=== PATIENT | male | born 1940 | race Caucasian/White ===

== ENCOUNTER 2024-07-26 10:00 | Inpatient (IN) ==
--- NOTE | 2024-07-26 10:43 | XRay Report ---
XR chest 1V not portable CLINICAL HISTORY: cough, SOB, fever COMPARISON STUDY: None FINDINGS: There is prior CABG. There is moderate cardiomegaly without pulmonary vascular congestion. Inspiration is shallow. There is stranding opacity in the lung bases. No pleural effusion or pneumoth orax. IMPRESSION: Atelectasis versus early pneumonia in the lung bases. ACT 112: Negative or not required by law. Electronically signed by: Curly Pillai M.D. 07/26/2024 10:42 AM
[2024-07-26 11:25] LABS: Adenovirus PCR Not Detected (NotDetected); Bordetella parapertussis PCR Not Detected (NotDetected); Bordetella pertussis PCR Not Detected (NotDetected); Chlamydia pneumoniae PCR Not Detected (NotDetected); Coronavirus 229E PCR Not Detected (NotDetected); Coronavirus CoV-2 (COVID19)PCR Not Detected (NotDetected); Coronavirus HKU1 PCR Not Detected (NotDetected); Coronavirus NL63 PCR DETECTED (NotDetected); Coronavirus OC43PCR Not Detected (NotDetected); Human Metapneumovirus PCR Not Detected (NotDetected); Influenza A PCR Not Detected (NotDetected); Influenza B PCR Not Detected (NotDetected); Mycoplasma pneumoniae PCR Not Detected (NotDetected); Parainfluenza Virus 1 PCR Not Detected (NotDetected); Parainfluenza Virus 2 PCR Not Detected (NotDetected); Parainfluenza Virus 3 PCR Not Detected (NotDetected); Parainfluenza Virus 4 PCR Not Detected (NotDetected); Respiratory Syncytial VirusPCR Not Detected (NotDetected); Rhinovirus/Enterovirus PCR Not Detected (NotDetected)
[2024-07-26] MEDS: cefTRIAXone SODIUM 2,000 MG/50 ML BAG IV STA (12:11)
[2024-07-26] MEDS: ALBUT/IPRATROP 3MG/0.5MG NEB 3 ML VIAL NEB STA (12:11)
--- NOTE | 2024-07-26 12:17 | Emergency Department Note ---
Impression & Plan Pneumonia ED Provider Note NAME: DANIEL MAYES AGE: 84 SEX: Male INFORMANT: Patient ED PROVIDER(S): Iván Hopkins MD CHIEF COMPLAINT: Flulike symptoms PLAN: Disposition: Admitted Outpatient prescription management: none Referral: None MEDICAL DECISION MAKING: Patient presented to Emergency Department with flulike symptoms. Work was initiated. His CBC and chemistry panel were unremarkable. BUN was mildly elevated. BNP was slightly elevated as well. LFTs negative. The patient does have pneumonia on chest x-ray. BioFire testing revealed the presence of coronavirus NL 63. I suspect given the illness of his that he had coronavirus as she did and is now having a secondary pneumonia. Patient's curb 65 score is borderline and given his complaints of last night and desire for admission the [facility] service was consulted. Patient was evaluated in the ER and admitted for further management. Patient was treated with Rocephin and doxycycline in the ER after blood cultures. Care/management discussed with: none Level of care consideration(s): After review of the information above and other included data, I feel the patient requires escalation of care to admission Triage Nursing notes: reviewed and agree them. Vital Signs: reviewed and remarkable for no significant abnormalities Additional History obtained from: none Chronic Medical/Social Conditions affecting care: Hypertension Prior/ Outside/ External records reviewed: none Differential Diagnosis: Reactive airway disease, pneumonia, pneumothorax, COPD, CHF, infections, cardiac ischemia, pulmonary embolism, musculoskeletal, gastrointestinal, as well as other pathologies. Diagnostics, independently interpreted by me: ECG: Twelve-lead ECG reveals a sinus rhythm with a first-degree AV block at 63 bpm. Incomplete right bundle branch block. And septal Q wave present. Cardiac Monitoring: Cardiac monitoring ordered by me: The patient was placed on continuous cardiac monitoring and observed. It revealed a normal sinus rhythm at 75 beats per minute without ectopy or evidence of dysrhythmia. Medical decision rules: none Imaging studies: Chest x-ray is concerning for pneumonia. I refer you to the EMR for further details. HPI: 84 year old Male arrives for evaluation of flulike symptoms. This started about 2 weeks ago and is worsening. Patient states that he had a very rough night last night and was having shortness of breath cough and congestion. The patient also notes the following associated symptoms, fever and body aches. Patient notes his was sick with similar symptoms but only lasted a few days. The patient has been prescribed amoxicillin and Flonase for relieving factors. Current pain is rated as 0/10. Patient is requesting admission. Pt denies LOC, headache, diaphoresis, visual changes, neck pain, chest pain, nausea, vomiting, abdominal pain, back pain, melena, hematochezia, urinary symptoms, numbness, weakness, lymphadenopathy, rash, or other complaints. PAST MEDICAL HISTORY: See Below, hypertension PAST SURGICAL HISTORY: See Below, SOCIAL HISTORY: See Below, retired HOME MEDICATIONS: See Below ALLERGIES: See Below VITALS: See Below PHYSICAL EXAMINATION: GENERAL: Awake, tired appearing, in no distress HENT: Normocephalic, atraumatic. Oropharynx unremarkable. EYES: Normal conjunctiva. Sclera non-icteric. NECK: Inspection normal. Non-tender. Supple. No nuchal rigidity. FROM. No masses. RESPIRATORY: Few scattered rhonchi noted. No wheezes. No rales. Normal respiratory effort. CARDIAC: Normal rate. Normal rhythm. No murmurs. No rubs. Extremities warm and well perfused. Pulses equal. No JVD. GI: Soft, non-distended. No tenderness to palpation. No rebound or guarding. No masses. RECTAL: Deferred. MUSCULOSKELETAL: Atraumatic. Chest examination reveals no tenderness. The back is symmetrical on inspection without obvious abnormality. There is no CVA tenderness to palpation. No joint edema. LOWER EXTREMITIES: Calves are equal size bilaterally and non-tender. No edema. No discoloration. NEURO: Normal sensorium. No sensory or motor deficits noted. SKIN: No rash or jaundice noted. PROCEDURES: none CRITICAL CARE: none OBSERVATION NOTE: none Past Med/Surg History Problem List (Updated 07/26/24 @ 14:30 by ARGENTINA Maurer) ERIN (obstructive sleep apnea) Atrial fibrillation S/P CABG x 3 CAD (coronary artery disease) Pneumonia (Acute) Social History Smoking Status: Never smoker Preferred Language: Swedish Feels Safe at Home: Yes Allergies Allergies Allergy/AdvReac Type Severity Reaction Status Date / Time Unable to Assess Allergy Unverified 07/26/24 14:12 Home Meds Home Medications Medication Instructions Recorded Confirmed amoxicillin 875 mg-potassium 1 tab PO AMPM 07/26/24 07/26/24 clavulanate 125 mg tablet atorvastatin 40 mg tablet 40 mg PO DAILY 07/26/24 07/26/24 fluticasone propionate 50 1 spray intranasal DAILY 07/26/24 07/26/24 mcg/actuation nasal spray,suspension furosemide 20 mg tablet 20 mg PO Q OTHER DAY 07/26/24 07/26/24 metoprolol succinate 25 mg 12.5 mg PO BID 07/26/24 07/26/24 tablet,extended release 24 hr Results & Data (ED) Vital Signs Vital Signs - 24 hr 07/26/24 10:10 07/26/24 12:14 07/26/24 12:22 Temperature 36.8 C Temperature Source Temporal Artery Scan Pulse Rate 66 62 Pulse Rate [Right Brachial] Pulse Rhythm [Right Brachial] Pulse Strength [Right Brachial] Respiratory Rate 18 16 Respiratory Effort / Characteristics Non-Labored Respiratory Depth Normal Respiratory Pattern Blood Pressure 149/70 H 111/61 Blood Pressure [Right Arm] Blood Pressure Mean 96 77 Blood Pressure Mean [Right Arm] Blood Pressure Position [Right Arm] Pulse Oximetry 95 91 96 Oxygen Delivery Method Room Air Room Air Room Air Sepsis Recent Fever Within 48 Hours Yes Sepsis New/Unexplained Change in Mental Status No Sepsis Action Taken by Nursing No Action Required 07/26/24 12:27 07/26/24 14:00 07/26/24 16:00 Temperature Temperature Source Pulse Rate 66 Pulse Rate [Right Brachial] 72 75 Pulse Rhythm [Right Brachial] Regular Regular Pulse Strength [Right Brachial] Normal Normal Respiratory Rate 22 20 Respiratory Effort / Characteristics Non-Labored Non-Labored Respiratory Depth Normal Normal Respiratory Pattern Regular Regular Blood Pressure Blood Pressure [Right Arm] 123/74 121/76 Blood Pressure Mean Blood Pressure Mean [Right Arm] 90 91 Blood Pressure Position [Right Arm] Lying Lying Pulse Oximetry 96 98 Oxygen Delivery Method Room Air Room Air Sepsis Recent Fever Within 48 Hours Sepsis New/Unexplained Change in Mental Status Sepsis Action Taken by Nursing Laboratory Data 07/26/24 12:00 07/26/24 13:18 Lab Results 07/26/24 07/26/24 07/26/24 Range/Units 10:25 12:00 13:18 WBC 8.49 (4.8-10.8) K/ul RBC 4.12 L (4.70-6.10) M/uL Hgb 12.9 L (14.0-18.0) g/dl Hct 38.6 L (42.0-52.0) % MCV 93.7 (80.0-100.0) fL MCH 31.3 (25.0-34.0) pg MCHC 33.4 (32.0-36.0) g/dL RDW Std Deviation 45.1 (36.4-46.3) fL RDW Coeff of Juli 13.1 (11.5-14.5) % Plt Count 292 (130-400) K/uL MPV 9.3 L (9.4-12.4) fL Immature Gran % (Auto) 0.8 % Neut % (Auto) 62.3 % Lymph % (Auto) 18.7 % [place] % (Auto) 15.9 % Eos % (Auto) 1.9 % Baso % (Auto) 0.4 % Neut # (Auto) 5.29 (1.40-6.50) K/uL Lymph # (Auto) 1.59 (1.20-3.40) K/uL [place] # (Auto) 1.35 H (0.11-0.59) K/uL Eos # (Auto) 0.16 (0.00-0.50) K/uL Baso # (Auto) 0.03 (0.00-0.20) K/uL Immature Gran # (Auto) 0.07 (0.01-0.20) K/uL Sodium 137 (136-145) mmol/L Potassium TNP 3.7 Chloride 103 (98-107) mmol/L Carbon Dioxide 26 (21-32) mmol/L Anion Gap 8 (3-11) BUN 20 (6-23) mg/dl Creatinine 0.87 (0.6-1.4) mg/dl Est Cr Clr Drug Dosing 61.8 ml/min eGFR 86.15 BUN/Creatinine Ratio 23.0 H (10-20) Glucose 94 (70-99(Fasting)) mg/dl Calcium 9.3 (8.6-10.3) mg/dl Total Bilirubin 1.1 H (0.2-1.0) mg/dl AST TNP 32 ALT 28 (7-52) U/L Alkaline Phosphatase 75 (34-104) U/L Troponin I High Sens 9.2 (0-20) pg/ml B-Natriuretic Peptide 162 H (0-100) pg/ml Total Protein 7.0 (6.0-8.3) gm/dl Albumin 3.6 (3.4-5.0) gm/dl Globulin 3.4 (2.5-4.0) gm/dl Albumin/Globulin Ratio 1.1 (0.9-2) Lipase 19 (11-82) U/L Procalcitonin (0-0.5) ng/ml Adenovirus (PCR) Not Detected (NotDetected) B. pertussis DNA (PCR) Not Detected (NotDetected) B.parapertussis DNA PCR Not Detected (NotDetected) C. pneumoniae DNA (PCR) Not Detected (NotDetected) Coronavirus OC43 (PCR) Not Detected (NotDetected) Coronavirus HKU1 (PCR) Not Detected (NotDetected) Coronavirus 229E (PCR) Not Detected (NotDetected) SARS-CoV-2 (PCR) Not Detected (NotDetected) Coronavirus NL63 (PCR) DETECTED A (NotDetected) Human Metapneumovir PCR Not Detected (NotDetected) Influenza Type A (PCR) Not Detected (NotDetected) Influenza Type B (PCR) Not Detected (NotDetected) M. pneumoniae (PCR) Not Detected (NotDetected) Parainfluenza 1 (PCR) Not Detected (NotDetected) Parainfluenza 2 (PCR) Not Detected (NotDetected) Parainfluenza 3 (PCR) Not Detected (NotDetected) Parainfluenza 4 (PCR) Not Detected (NotDetected) RSV (PCR) Not Detected (NotDetected) Entero/Rhino (PCR) Not Detected (NotDetected) 07/26/24 Range/Units 14:31 WBC (4.8-10.8) K/ul RBC (4.70-6.10) M/uL Hgb (14.0-18.0) g/dl Hct (42.0-52.0) % MCV (80.0-100.0) fL MCH (25.0-34.0) pg MCHC (32.0-36.0) g/dL RDW Std Deviation (36.4-46.3) fL RDW Coeff of Juli (11.5-14.5) % Plt Count (130-400) K/uL MPV (9.4-12.4) fL Immature Gran % (Auto) % Neut % (Auto) % Lymph % (Auto) % [place] % (Auto) % Eos % (Auto) % Baso % (Auto) % Neut # (Auto) (1.40-6.50) K/uL Lymph # (Auto) (1.20-3.40) K/uL [place] # (Auto) (0.11-0.59) K/uL Eos # (Auto) (0.00-0.50) K/uL Baso # (Auto) (0.00-0.20) K/uL Immature Gran # (Auto) (0.01-0.20) K/uL Sodium (136-145) mmol/L Potassium Chloride (98-107) mmol/L Carbon Dioxide (21-32) mmol/L Anion Gap (3-11) BUN (6-23) mg/dl Creatinine (0.6-1.4) mg/dl Est Cr Clr Drug Dosing ml/min eGFR BUN/Creatinine Ratio (10-20) Glucose (70-99(Fasting)) mg/dl Calcium (8.6-10.3) mg/dl Total Bilirubin (0.2-1.0) mg/dl AST ALT (7-52) U/L Alkaline Phosphatase (34-104) U/L Troponin I High Sens (0-20) pg/ml B-Natriuretic Peptide (0-100) pg/ml Total Protein (6.0-8.3) gm/dl Albumin (3.4-5.0) gm/dl Globulin (2.5-4.0) gm/dl Albumin/Globulin Ratio (0.9-2) Lipase (11-82) U/L Procalcitonin 0.19 (0-0.5) ng/ml Adenovirus (PCR) (NotDetected) B. pertussis DNA (PCR) (NotDetected) B.parapertussis DNA PCR (NotDetected) C. pneumoniae DNA (PCR) (NotDetected) Coronavirus OC43 (PCR) (NotDetected) Coronavirus HKU1 (PCR) (NotDetected) Coronavirus 229E (PCR) (NotDetected) SARS-CoV-2 (PCR) (NotDetected) Coronavirus NL63 (PCR) (NotDetected) Human Metapneumovir PCR (NotDetected) Influenza Type A (PCR) (NotDetected) Influenza Type B (PCR) (NotDetected) M. pneumoniae (PCR) (NotDetected) Parainfluenza 1 (PCR) (NotDetected) Parainfluenza 2 (PCR) (NotDetected) Parainfluenza 3 (PCR) (NotDetected) Parainfluenza 4 (PCR) (NotDetected) RSV (PCR) (NotDetected) Entero/Rhino (PCR) (NotDetected) Administered Medications Discontinued Medications Albuterol (Albut/Ipratrop 3mg/0.5mg Neb 3 Ml Vial) 3 ml NEB NOW STA; Protocol Stop: 07/26/24 11:44 Last Admin: 07/26/24 12:11 Dose: 3 ml Documented By: Ceftriaxone Sodium (Rocephin) 2,000 mg in 50 mls @ 100 mls/hr IV NOW STA Stop: 07/26/24 12:13 Last Infusion: 07/26/24 13:54 Dose: Infused Documented By: Admin: 07/26/24 12:11 Dose: 100 mls/hr Documented By: Doxycycline Hyclate 100 mg/ (Dextrose) 100 mls @ 50 mls/hr IV NOW STA Stop: 07/26/24 15:38 Last Infusion: 07/26/24 16:37 Dose: Infused Documented By: Admin: 07/26/24 14:29 Dose: 50 mls/hr Documented By: LETICIA Imaging Data Radiologist's Impression: Chest X-Ray 07/26/24 10:25 XR chest 1V not portable CLINICAL HISTORY: cough, SOB, fever COMPARISON STUDY: None FINDINGS: There is prior CABG. There is moderate cardiomegaly without pulmonary vascular congestion. Inspiration is shallow. There is stranding opacity in the lung bases. No pleural effusion or pneumothorax. IMPRESSION: Atelectasis versus early pneumonia in the lung bases. ACT 112: Negative or not required by law. Electronically signed by: Curly Pillai M.D. 07/26/2024 10:42 AM Discharge Plan Visit Data Chief Complaint: Flu Like Symptoms Stated Complaint: FEVER, ACHY, WEAK, COUGH ED Provider: Iván Hopkins Discharge Problem: Pneumonia Forms Stand Alone Forms: My [facility] Prescriptions Prescriptions: No Action atorvastatin 40 mg tablet 40 mg PO DAILY furosemide 20 mg tablet 20 mg PO Q OTHER DAY Rx Instructions: Pat take additional if needed for fluid retention metoprolol succinate 25 mg tablet extended release 24 hr 12.5 mg PO BID fluticasone propionate 50 mcg/actuation spray,suspension 1 spray INTRANASAL DAILY amoxicillin-pot clavulanate 875-125 mg tablet 1 tab PO AMPM Rx Instructions: Start Date 07/23/24 x7 day supply Referrals Referrals: Patricia Carr MD [Primary Care Provider] -
[2024-07-26 12:24] LABS: Basophils # (auto) 0.03 K/uL (0.00-0.20); Basophils % (auto) 0.4 %; Eosinophils # (auto) 0.16 K/uL (0.00-0.50); Eosinophils % (auto) 1.9 %; Hematocrit (blood only) 38.6 % (42.0-52.0); Hemoglobin 12.9 g/dl (14.0-18.0); Immature Granulocytes # (auto) 0.07 K/uL (0.01-0.20); Immature Granulocytes % (auto) 0.8 %; Lymphocytes # (auto) 1.59 K/uL (1.20-3.40); Lymphocytes % (auto) 18.7 %; Mean Corpuscular Hemoglobin 31.3 pg (25.0-34.0); Mean Corpuscular Hgb Conc 33.4 g/dL (32.0-36.0); Mean Corpuscular Volume 93.7 fL (80.0-100.0); Mean Platelet Volume 9.3 fL (9.4-12.4); Monocytes # (auto) 1.35 K/uL (0.11-0.59); Monocytes % (auto) 15.9 %; Neutrophils # (auto) 5.29 K/uL (1.40-6.50); Neutrophils % (auto) 62.3 %; Platelet Count 292 K/uL (130-400); RDW Coefficient of Variation 13.1 % (11.5-14.5); RDW Standard Deviation 45.1 fL (36.4-46.3); Red Blood Count 4.12 M/uL (4.70-6.10); White Blood Count 8.49 K/ul (4.8-10.8)
[2024-07-26 12:52] LABS: Alanine Aminotransferase 28 U/L (7-52); Albumin Globulin Ratio 1.1 (0.9-2); Albumin Level 3.6 gm/dl (3.4-5.0); Alkaline Phosphatase 75 U/L (34-104); Anion Gap 8 (3-11); Bilirubin,Total 1.1 mg/dl (0.2-1.0); Blood Urea Nitrogen 20 mg/dl (6-23); Calcium 9.3 mg/dl (8.6-10.3); Carbon Dioxide 26 mmol/L (21-32); Chloride 103 mmol/L (98-107); Creatinine Clr Calc Pharmacy 61.8 ml/min; Globulin 3.4 gm/dl (2.5-4.0); Glucose 94 mg/dl (70-99(Fasting)); Lipase 19 U/L (11-82); Sodium 137 mmol/L (136-145); Troponin I High Sensitivity 9.2 pg/ml (0-20)
[2024-07-26 13:48] LABS: Potassium 3.7 mmol/L (3.5-5.1)
--- NOTE | 2024-07-26 14:15 | Electrocardiogram Report ---
Test Reason : Blood Pressure : */* mmHG Vent. Rate : 63 BPM Atrial Rate : 63 BPM P-R Int : 242 ms QRS Dur : 98 ms QT Int : 422 ms P-R-T Axes : 55 -29 67 degrees QTcB Int : 431 ms Sinus rhythm with 1st degree A-V block Incomplete right bundle branch block Septal infarct , age undetermined Abnormal ECG No previous ECGs available Confirmed by Megan Mclean (Rosio) on 07/26/2024 2:15:00 PM Referred By: REFERRED SELF Confirmed By: Megan Mclean
--- NOTE | 2024-07-26 14:21 | History & Physical Report ---
Date of Service July 26, 2024 Assessment & Plan (1) Pneumonia: (2) CAD (coronary artery disease): (3) S/P CABG x 3: (4) Atrial fibrillation: (5) ERIN (obstructive sleep apnea): Plan The patient is a 84-year-old male with a past medical history of CAD, CABG, AF, ERIN on CPAP who presents to the ED on 07/26/2024 with complaints of ongoing flulike symptoms and generalized weakness over the past 2 weeks found to be coronavirus NL 63 positive Superimposed bacterial pneumonia Coronavirus NL 63 Supportive care, nebs as needed, no hypoxia noted Can continue IV fluids if needed, monitor labs Continue doxycycline/ceftriaxone Hx CAD/HLD/CHF/CABG: Continue metoprolol/Lasix/atorvastatin Follows with [facility] cardiology last seen October 2023 A total of 60 minutes was spent on chart review/facilitating plan of care/re viewing diagnostic data/discussion with consultants Disposition: Plan for monitoring overnight, if stable/improving in the morning, can likely DC on oral antibiotics Full code DVT prophylaxis: hep sub-q History of Present Illness Chief Complaint: Cough, flulike symptoms Primary Care Provider: Patricia Carr MD The patient is an 84-year-old male with a past medical history of CABG times 01 Nov 2023, AF, aortic valve stenosis, ERIN on CPAP, CAD, HTN who presents to the ED on 07/26/2024 with complaints of flulike symptoms over the past 2 weeks. Patient was seen by his PCP on 07/23/2024, he was given Flonase, amoxicillin and his symptoms are not improving. Patient had a negative at-home COVID test. No hypoxia noted. Patient reports his cough had improved initially but then worsened again. He also reported some subjective fevers. He is not sure his highest temp. He denies any nausea/vomiting/diarrhea or abdominal pain. Still reports some ongoing flulike symptoms. Found to be positive for coronavirus NL 63 here Chest x-ray showed bilateral pneumonia Labs on arrival fairly unremarkable, BNP mildly elevated at 162 Patient was given Doxy and ceftriaxone in the ED and will be admitted for further management Allergies Allergy/AdvReac Type Severity Reaction Status Date / Time Unable to Assess Allergy Unverified 07/26/24 14:12 Home Medications Medication Instructions Recorded Confirmed Type amoxicillin 875 mg-potassium 1 tab PO AMPM 07/26/24 07/26/24 History clavulanate 125 mg tablet atorvastatin 40 mg tablet 40 mg PO DAILY 07/26/24 07/26/24 History fluticasone propionate 50 1 spray intranasal DAILY 07/26/24 07/26/24 History mcg/actuation nasal spray,suspension furosemide 20 mg tablet 20 mg PO Q OTHER DAY 07/26/24 07/26/24 History metoprolol succinate 25 mg 12.5 mg PO BID 07/26/24 07/26/24 History tablet,extended release 24 hr Past Med/Surg History Problem List (Updated 07/26/24 @ 14:30 by ARGENTINA Maurer) ERIN (obstructive sleep apnea) Atrial fibrillation S/P CABG x 3 CAD (coronary artery disease) Pneumonia (Acute) Social History Smoking Status: Never smoker Preferred Language: Serbian Feels Safe at Home: Yes Review of Systems Review of Systems: All systems reviewed & are unremarkable except as noted in HPI & below Physical Exam Constitutional: WD/WN, vitals as above well developed Eyes: PERRL, conjunctivae normal, anicteric sclerae ENMT: external ear and nose normal, oropharynx normal Neck: trachea midline, no thyromegaly Respiratory: normal respiratory effort, lungs clear to auscultation (Coarse bilateral lung sounds., Diminished) Cardiovascular: RRR, no murmur, no edema Gastrointestinal (Abdomen): normal bowel sounds, soft, nontender, no hepatosplenomegaly Musculoskeletal: no cyanosis or clubbing, extremities motor strength 5/5 Skin: no rashes, warm and dry Neurologic: PERRL, EOMI, accommodation nl, no face palsy, no dysarthria Psychiatric: A+Ox3, euthymic affect Lymphatic: no cervical or axillary lymphadenopathy Results & Data Results & Data Vital Signs (Past 12 Hours) Vital Signs Temp Pulse Resp BP Pulse Ox O2 Del Method 07/26/24 12:27 66 07/26/24 12:22 96 Room Air 07/26/24 12:14 62 16 111/61 91 Room Air 07/26/24 10:10 36.8 C 66 18 149/70 H 95 Room Air Diagnostic Findings Laboratory Results WBC 8.49 K/ul (4.8-10.8) 07/26/24 12:00 RBC 4.12 M/uL (4.70-6.10) L 07/26/24 12:00 Hgb 12.9 g/dl (14.0-18.0) L 07/26/24 12:00 Hct 38.6 % (42.0-52.0) L 07/26/24 12:00 MCV 93.7 fL (80.0-100.0) 07/26/24 12:00 MCH 31.3 pg (25.0-34.0) 07/26/24 12:00 MCHC 33.4 g/dL (32.0-36.0) 07/26/24 12:00 RDW Std Deviation 45.1 fL (36.4-46.3) 07/26/24 12:00 RDW Coeff of Juli 13.1 % (11.5-14.5) 07/26/24 12:00 Plt Count 292 K/uL (130-400) 07/26/24 12:00 MPV 9.3 fL (9.4-12.4) L 07/26/24 12:00 Immature Gran % (Auto) 0.8 % 07/26/24 12:00 Neut % (Auto) 62.3 % 07/26/24 12:00 Lymph % (Auto) 18.7 % 07/26/24 12:00 [place] % (Auto) 15.9 % 07/26/24 12:00 Eos % (Auto) 1.9 % 07/26/24 12:00 Baso % (Auto) 0.4 % 07/26/24 12:00 Neut # (Auto) 5.29 K/uL (1.40-6.50) 07/26/24 12:00 Lymph # (Auto) 1.59 K/uL (1.20-3.40) 07/26/24 12:00 [place] # (Auto) 1.35 K/uL (0.11-0.59) H 07/26/24 12:00 Eos # (Auto) 0.16 K/uL (0.00-0.50) 07/26/24 12:00 Baso # (Auto) 0.03 K/uL (0.00-0.20) 07/26/24 12:00 Immature Gran # (Auto) 0.07 K/uL (0.01-0.20) 07/26/24 12:00 Sodium 137 mmol/L (136-145) 07/26/24 12:00 Potassium 3.7 mmol/L (3.5-5.1) 07/26/24 13:18 Chloride 103 mmol/L (98-107) 07/26/24 12:00 Carbon Dioxide 26 mmol/L (21-32) 07/26/24 12:00 Anion Gap 8 (3-11) 07/26/24 12:00 BUN 20 mg/dl (6-23) 07/26/24 12:00 Creatinine 0.87 mg/dl (0.6-1.4) 07/26/24 12:00 Est Cr Clr Drug Dosing 61.8 ml/min 07/26/24 12:00 eGFR 86.15 07/26/24 12:00 BUN/Creatinine Ratio 23.0 (10-20) H 07/26/24 12:00 Glucose 94 mg/dl (70-99(Fasting)) 07/26/24 12:00 Calcium 9.3 mg/dl (8.6-10.3) 07/26/24 12:00 Total Bilirubin 1.1 mg/dl (0.2-1.0) H 07/26/24 12:00 AST 32 U/L (13-39) 07/26/24 13:18 ALT 28 U/L (7-52) 07/26/24 12:00 Alkaline Phosphatase 75 U/L (34-104) 07/26/24 12:00 Troponin I High Sens 9.2 pg/ml (0-20) 07/26/24 12:00 B-Natriuretic Peptide 162 pg/ml (0-100) H 07/26/24 12:00 Total Protein 7.0 gm/dl (6.0-8.3) 07/26/24 12:00 Albumin 3.6 gm/dl (3.4-5.0) 07/26/24 12:00 Globulin 3.4 gm/dl (2.5-4.0) 07/26/24 12:00 Albumin/Globulin Ratio 1.1 (0.9-2) 07/26/24 12:00 Lipase 19 U/L (11-82) 07/26/24 12:00 Adenovirus (PCR) Not Detected (NotDetected) 07/26/24 10:25 B. pertussis DNA (PCR) Not Detected (NotDetected) 07/26/24 10:25 B.parapertussis DNA PCR Not Detected (NotDetected) 07/26/24 10:25 C. pneumoniae DNA (PCR) Not Detected (NotDetected) 07/26/24 10:25 Coronavirus OC43 (PCR) Not Detected (NotDetected) 07/26/24 10:25 Coronavirus HKU1 (PCR) Not Detected (NotDetected) 07/26/24 10:25 Coronavirus 229E (PCR) Not Detected (NotDetected) 07/26/24 10:25 SARS-CoV-2 (PCR) Not Detected (NotDetected) 07/26/24 10:25 Coronavirus NL63 (PCR) DETECTED (NotDetected) A 07/26/24 10:25 Human Metapneumovir PCR Not Detected (NotDetected) 07/26/24 10:25 Influenza Type A (PCR) Not Detected (NotDetected) 07/26/24 10:25 Influenza Type B (PCR) Not Detected (NotDetected) 07/26/24 10:25 M. pneumoniae (PCR) Not Detected (NotDetected) 07/26/24 10:25 Parainfluenza 1 (PCR) Not Detected (NotDetected) 07/26/24 10:25 Parainfluenza 2 (PCR) Not Detected (NotDetected) 07/26/24 10:25 Parainfluenza 3 (PCR) Not Detected (NotDetected) 07/26/24 10:25 Parainfluenza 4 (PCR) Not Detected (NotDetected) 07/26/24 10:25 RSV (PCR) Not Detected (NotDetected) 07/26/24 10:25 Entero/Rhino (PCR) Not Detected (NotDetected) 07/26/24 10:25 Impressions Chest X-Ray 07/26/24 10:25 XR chest 1V not portable CLINICAL HISTORY: cough, SOB, fever COMPARISON STUDY: None FINDINGS: There is prior CABG. There is moderate cardiomegaly without pulmonary vascular congestion. Inspiration is shallow. There is stranding opacity in the lung bases. No pleural effusion or pneumothorax. IMPRESSION: Atelectasis versus early pneumonia in the lung bases. ACT 112: Negative or not required by law. Electronically signed by: Curly Pillai M.D. 07/26/2024 10:42 AM Supervising Physician Co-Signing Physician Notes Patient is an 84-year-old male with history of CABG, ERIN, CAD, hypertension and other medical problems presents with history of ongoing flulike symptoms over the past 2 weeks duration. Patient was evaluated by PCP as outpatient and was prescribed amoxicillin and Flonase which did not relieve his symptoms. Patient reports having worsening cough and subjective fever. Please review HPI for complete details of presentation. He is saturating well on room air. I personally reviewed blood work and imaging studies. BioFire positive for coronavirus NL 63. Chest x-ray suggestive of possible pneumonia. EKG showed sinus rhythm with first-degree AV block, incomplete right bundle branch block. Physical Exam: Vitals signs as noted above General Appearance:Moderately built and nourished, no apparent distress Head: normocephalic, Atraumatic Eyes: normal inspection, EOMI Neck: supple, Trachea midline Respiratory/Chest: Decreased breath sounds, scattered crackles, No accessory muscle use Cardiovascular: S1, S2, ? murmur Abdomen/GI:Soft, Non tender, Bowel sounds present Extremities/Musculoskeletal:normal inspection, no edema Neurologic/Psych:AAOX3, grossly no focal neurological deficits Skin: normal color, warm, + CABG scar Coronavirus NL 63 infection Suspected superimposed pneumonia Started on empiric antibiotics Nebs, oxygen as needed Antitussives as needed I personally interviewed and examined the patient at bedside. I have reviewed the advanced practitioner's documentation on the date of service referred in note and agree with plan. Patient's care is coordinated with Rubi ELAINE. Please refer to the documentation above for details of patient's presentation and for discussion of other issues. I spent a total of 31minutes coordinating, documenting, and providing care for this patient excluding time spent in the performance of separately billed services or time spent by another provider/QHP.
[2024-07-26] MEDS: DOXYCYCLINE HYCLATE 100 MG in DEXTROSE 5% MINI-B 100 ML IV STA (14:29)
[2024-07-26] MEDS ORDERED: LEVALBUTEROL HCL 0.63 MG/3 ML NEB NEB PRN (17:36)
[2024-07-26] MEDS: FUROSEMIDE 20 MG TAB PO SCH (18:25)
[2024-07-26] MEDS: DOXYCYCLINE HYCLATE 100 MG CAP PO SCH (21:07)
[2024-07-26] MEDS: METOPROLOL SUCC 25MG EXT REL TAB PO SCH (21:07)
[2024-07-26] MEDS: HEPARIN SOD 5,000 UNIT/0.5 ML VIAL SQ SCH (21:07)
[2024-07-26] MEDS: guaiFENesin/DEXTROM SYRUP 200MG/20MG 10ML UDC PO PRN (21:12)
[2024-07-27 06:23] LABS: Basophils # (auto) 0.04 K/uL (0.00-0.20); Basophils % (auto) 0.5 %; Eosinophils % (auto) 3.7 %; Hematocrit (blood only) 35.1 % (42.0-52.0); Hemoglobin 11.9 g/dl (14.0-18.0); Immature Granulocytes # (auto) 0.12 K/uL (0.01-0.20); Immature Granulocytes % (auto) 1.5 %; Lymphocytes # (auto) 2.27 K/uL (1.20-3.40); Lymphocytes % (auto) 27.7 %; Mean Corpuscular Hemoglobin 32.1 pg (25.0-34.0); Mean Corpuscular Hgb Conc 33.9 g/dL (32.0-36.0); Mean Corpuscular Volume 94.6 fL (80.0-100.0); Mean Platelet Volume 9.2 fL (9.4-12.4); Monocytes # (auto) 1.17 K/uL (0.11-0.59); Monocytes % (auto) 14.3 %; Neutrophils % (auto) 52.3 %; Platelet Count 303 K/uL (130-400); RDW Standard Deviation 45.1 fL (36.4-46.3); Red Blood Count 3.71 M/uL (4.70-6.10)
[2024-07-27 06:41] LABS: Albumin Globulin Ratio 1.1 (0.9-2); Albumin Level 3.3 gm/dl (3.4-5.0); Bilirubin,Total 0.8 mg/dl (0.2-1.0); Calcium 9.3 mg/dl (8.6-10.3); Magnesium 1.9 mg/dl (1.7-2.4); Potassium 4.1 mmol/L (3.5-5.1); Total Protein 6.3 gm/dl (6.0-8.3)
[2024-07-27] MEDS: ATORVASTATIN 40 MG TAB PO SCH (08:21)
[2024-07-27] MEDS: FLUTICASONE PROPIONATE NA SPR 16 GM BTL SCH (08:21)
--- NOTE | 2024-07-27 11:55 | Hospitalist Progress Note ---
Date of Service July 27, 2024 Assessment & Plan (1) Pneumonia: (2) CAD (coronary artery disease): (3) S/P CABG x 3: (4) Atrial fibrillation: (5) ERIN (obstructive sleep apnea): Plan 84-year-old male with a past medical history of CAD, CABG, AF, ERIN on CPAP who presents to the ED on 07/26/2024 with complaints of ongoing flulike symptoms and generalized weakness over the past 2 weeks found to be coronavirus NL 63 positive at ED. He is being managed for the following: Superimposed bacterial pneumonia Coronavirus NL 63 Supportive care, nebs as needed, no hypoxia noted Can continue IV fluids if needed, monitor labs Continue doxycycline/ceftriaxone 07/26 - add probiotic - flonase, mucinex, IS Hx CAD/HLD/CHF/CABG: Continue metoprolol/Lasix/atorvastatin Follows with [facility] cardiology last seen October 2023 Disposition: likely dc thiago, c/w iv antibiotic today Full code DVT prophylaxis: hep sub-q Admission and Anticipated Discharge Date Admission Date: July 26, 2024 Subjective Patient was seen and examined at bedside. Patient was lying in bed, on room air, NAD, resting comfortably. Patient reports cough minimally improved, he is waiting nature, is not able to expectorate. Patient denies shortness of breath or chest pain. Patient reports eating okay. Physical Exam Physical Exam: General Appearance:Moderately built and nourished, no apparent distress Head: normocephalic, Atraumatic Eyes: normal inspection, EOMI Neck: supple, Trachea midline Respiratory/Chest: bb increased breath sounds, No accessory muscle use Cardiovascular: S1, S2, + murmur Abdomen/GI:Soft, Non tender, Bowel sounds present Extremities/Musculoskeletal:normal inspection, no edema Neurologic/Psych:AAOX3, grossly no focal neurological deficits Skin: normal color, warm, + CABG scar Results & Data Results & Data Vital Signs (Past 12 Hours) Vital Signs Temp Pulse Resp BP BP Pulse Ox O2 Del Method 07/27/24 08:26 70 121/68 95 Room Air 07/27/24 08:15 Room Air 07/27/24 07:08 36.7 C 59 L 14 128/66 93 Room Air
[2024-07-27] MEDS: cefTRIAXone SODIUM 1,000 MG/50 ML BAG IV SCH (12:06)
[2024-07-27] MEDS: guaiFENesin/DEXTROM SYRUP 200MG/20MG 10ML UDC PO SCH (12:26)
[2024-07-27] MEDS: ADVANCED PROBIOTIC 625 MG CAPSULE PO SCH (12:27)
[2024-07-27] MEDS: ACETAMINOPHEN 325 MG TAB PO PRN (15:58)
[2024-07-28 06:05] LABS: Hematocrit (blood only) 36.2 % (42.0-52.0); Hemoglobin 12.1 g/dl (14.0-18.0); Mean Corpuscular Hemoglobin 31.5 pg (25.0-34.0); Mean Corpuscular Hgb Conc 33.4 g/dL (32.0-36.0); Mean Corpuscular Volume 94.3 fL (80.0-100.0); Mean Platelet Volume 9.3 fL (9.4-12.4); Platelet Count 359 K/uL (130-400); RDW Coefficient of Variation 12.9 % (11.5-14.5); RDW Standard Deviation 44.8 fL (36.4-46.3); Red Blood Count 3.84 M/uL (4.70-6.10); White Blood Count 9.23 K/ul (4.8-10.8)
[2024-07-28 06:23] LABS: BUN Creatinine Ratio 25.6 (10-20); Calcium 9.5 mg/dl (8.6-10.3); Creatinine Clr Calc Pharmacy 59.7 ml/min; Potassium 4.1 mmol/L (3.5-5.1)
[2024-07-28 08:08] VITALS: BP 121/72; PULSE 72; RESP 16; TEMP 99.1
[2024-07-28 08:17] VITALS: O2SAT 99
--- NOTE | 2024-07-28 12:04 | Discharge Summary ---
Date of Service July 28, 2024 Admission HPI Per Admitting Provider The patient is an 84-year-old male with a past medical history of CABG times 01 Nov 2023, AF, aortic valve stenosis, ERIN on CPAP, CAD, HTN who presents to the ED on 07/26/2024 with complaints of flulike symptoms over the past 2 weeks. Patient was seen by his PCP on 07/23/2024, he was given Flonase, amoxicillin and his symptoms are not improving. Patient had a negative at-home COVID test. No hypoxia noted. Patient reports his cough had improved initially but then worsened again. He also reported some subjective fevers. He is not sure his highest temp. He denies any nausea/vomiting/diarrhea or abdominal pain. Still reports some ongoing flulike symptoms. Found to be positive for coronavirus NL 63 here Chest x-ray showed bilateral pneumonia Labs on arrival fairly unremarkable, BNP mildly elevated at 162 Patient was given Doxy and ceftriaxone in the ED and will be admitted for further management Admission Exam Per Admitting Provider Constitutional: WD/WN, vitals as above well developed Eyes: PERRL, conjunctivae normal, anicteric sclerae ENMT: external ear and nose normal, oropharynx normal Neck: trachea midline, no thyromegaly Respiratory: normal respiratory effort, lungs clear to auscultation (Coarse bilateral lung sounds., Diminished) Cardiovascular: RRR, no murmur, no edema Gastrointestinal (Abdomen): normal bowel sounds, soft, nontender, no hepatosplenomegaly Musculoskeletal: no cyanosis or clubbing, extremities motor strength 5/5 Skin: no rashes, warm and dry Neurologic: PERRL, EOMI, accommodation nl, no face palsy, no dysarthria Psychiatric: A+Ox3, euthymic affect Lymphatic: no cervical or axillary lymphadenopathy Principal Diagnosis Superimposed bacterial pneumonia Coronavirus NL 63 URTI Discharge Exam General Appearance:Moderately built and nourished, no apparent distress Head: normocephalic, Atraumatic Eyes: normal inspection, EOMI Neck: supple, Trachea midline Respiratory/Chest: bb increased breath sounds, No accessory muscle use Cardiovascular: S1, S2, + murmur Abdomen/GI:Soft, Non tender, Bowel sounds present Extremities/Musculoskeletal:normal inspection, no edema Neurologic/Psych:AAOX3, grossly no focal neurological deficits Skin: normal color, warm, + CABG scar Discharge Data Allergies Allergy/AdvReac Type Severity Reaction Status Date / Time Unable to Assess Allergy Unverified 07/26/24 14:12 Consultations 07/26/24 14:13 ED Decision to Admit Stat Hospital Course (1) Pneumonia: (2) CAD (coronary artery disease): (3) S/P CABG x 3: (4) Atrial fibrillation: (5) ERIN (obstructive sleep apnea): Plan 84-year-old male with a past medical history of CAD, CABG, AF, ERIN on CPAP who presents to the ED on 07/26/2024 with complaints of ongoing flulike symptoms and generalized weakness over the past 2 weeks found to be coronavirus NL 63 positive at ED. He was managed for the following: Superimposed bacterial pneumonia Coronavirus NL 63 Supportive care, nebs as needed, no hypoxia noted Can continue IV fluids if needed, monitor labs Continue doxycycline/ceftriaxone 07/26, to po atb on dc. - c/w probiotic - flonase, mucinex, IS - pt reports improving cough and feels better, would like to go home. pt is hemodynamically stable. Hx CAD/HLD/CHF/CABG: Continue metoprolol/Lasix/atorvastatin Follows with [facility] cardiology last seen October 2023 Disposition: likely dc thiago, c/w iv antibiotic today Full code DVT prophylaxis: hep sub-q Patient is being discharged to home with following instructions at the point of discharge: Follow-up with your primary care physician within a week time and likely you will need labs CBC/CMP/magnesium/phosphorus. You were admitted and managed for superimposed bacterial infection on viral respiratory tract infection. Continue with antibiotics as prescribed. Continue with probiotics. Take your medications as prescribed. Please make sure that you are able to get your medications today by calling your pharmacy before you leave the hospital so that your treatment continuity is not broken. Home Health Attestation I certify that this patient is under my care and that I, or a physicians certified dental assistant working with me, had a face to-face encounter that meets the home health [id number] encounter requirements with this patient. The encounter with the patient was in whole, or in part, for the following medical condition, which is the primary reason for home health care (list medical condition): I certify that, based on my findings, the following services are medically necessary home health services: My clinical findings support the need for the above services because: Further, I certify that my clinical findings support that this patient is homebound (i.e. absences from home require considerable and taxing effort and are for medical reasons or mu-ism services or infrequently or of short duration when for other reasons) because: Certification for Home Health Services: Based on the above findings, I certify that this patient is confined to the home and needs intermittent detention care, physical therapy and/or speech therapy or continues to need occupational therapy. The patient is under my care, and I have initiated the establishment of the plan of care. This patient will be followed by a physician who will periodically review the plan of care. Total Time Total Time Spent Total Time Spent (In Minutes): 35 Discharge Plan Discharge Items Patient Disposition: Home - Self-Care Reason For Visit: WEAKNESS Discharge Diagnosis: Superimposed bacterial pneumonia Coronavirus NL 63 URTI Activity: Resume your previous activity Non-emergency contact: Primary Care Provider Call non-emergency contact if: you have any medication questions and your symptoms worsen Follow-up/Referrals: Patricia Carr MD [Primary Care Provider] - 08/04/24 9:00 am (Date & Time 08/04/2024 9:00 AM Provider: Ifeoma Davies MD Family Medicine [facility] ) Diet: Heart Healthy Addtl Attending Provider Instructions: Follow-up with your primary care physician within a week time and likely you will need labs CBC/CMP/magnesium/phosphorus. You were admitted and managed for superimposed bacterial infection on viral respiratory tract infection. Continue with antibiotics as prescribed. Continue with probiotics. Take your medications as prescribed. Please make sure that you are able to get your medications today by calling your pharmacy before you leave the hospital so that your treatment continuity is not broken. Pending Studies at Discharge: Yes Stand-Alone Forms: My [employer], Smoking Cessation Medications and DC Order Prescriptions: New doxycycline hyclate 100 mg Capsule 100 mg PO BID 5 Days Qty: 10 0RF cefdinir 300 mg capsule 300 mg PO BID 5 Days Qty: 10 0RF Advanced Probiotic 625 mg (10 billion cell) Capsule 1 cap PO DAILY 7 Days Qty: 7 0RF dextromethorphan-guaifenesin [Robitussin Cough-Chest Henry DM] 5-100 mg/5 mL Liquid 10 ml PO Q6H PRN (Reason: cough) 7 Days Qty: 280 0RF Continued atorvastatin 40 mg tablet 40 mg PO DAILY furosemide 20 mg tablet 20 mg PO Q OTHER DAY Rx Instructions: Pat take additional if needed for fluid retention metoprolol succinate 25 mg tablet extended release 24 hr 12.5 mg PO BID fluticasone propionate 50 mcg/actuation spray,suspension 1 spray INTRANASAL DAILY Discontinued amoxicillin-pot clavulanate 875-125 mg tablet 1 tab PO AMPM Rx Instructions: Start Date 07/23/24 x7 day supply Discharge Orders: Discharge Order (Routine); Ordered 07/28/24 Ordered By: Jeferson Spring Admission Data Admit Date/Time: 07/26/24 14:17 Attending Provider: Jeferson Spring Admit Provider: Frederick Allen Primary Care Provider: Patricia Carr Other Providers: Frederick Allen
== END 2024-07-28 15:20 | disposition home or self-care (01) | DRG 865 ==
LOC: ED 10:00 → SUATTDRO 14:17 → 3E 14:17